=== PATIENT | female | born 1965 | race Caucasian/White ===

== ENCOUNTER 2025-01-15 13:06 | Inpatient (IN) | payer OTHER, SELFPAY ==
[2025-01-15] VITALS (10 sets, daily range): BP systolic 126–190; BP diastolic 72–136; BMI 20.1
--- NOTE | 2025-01-15 09:58 | ED.GENMED ---
History of Present Illness
General
Chief Complaint: Dizziness
Source: patient
Exam Limitations: none
Time Seen by Provider: 01/15/25 09:37
History of Present Illness
History of Present Illness:
59-year-old female started last week with evening with disequilibrium. At times spinning at times just balance off. Similar episode in 2021 when she had a pontine stroke. She had been on aspirin and clopidogrel. She currently only takes aspirin.
She admits that she is not totally faithful with this but has been faithful the last week. Also on losartan and hydrochlorothiazide. Again has historically not always been faithful with taking this but has been in the last week or so. Is
faithful with her statin. She also describes an episode of a possible ocular migraine last week. She states she has had that intermittently over the years. But none in a long time. Currently denies visual issues speech issues focal neurologic
symptoms or other complaints.
Past History
Past History
ED Past Medical History: CVA and HTN
ED Past Surgical History: None
Social History
Tobacco: Non-smoker
Alcohol: None
Personal:
Living: with family
Employment: Employed
Review of Systems
Review of Systems
All Other Systems: Not applicable
Respiratory: Reports no symptoms
Cardiac: Reports no symptoms
Phy Exam
Physical Exam
Physical Exam:
GENERAL: Alert and oriented in no apparent distress
EYE: Orbits normal.
NECK: Supple, no carotid bruit
ENT: Pharynx without erythema
CARDIAC: Regular rate and rhythm without any obvious murmurs.
LUNGS: Clear breath sounds,normal
ABDOMEN: Soft, without focal tenderness or distention
NEUROLOGICAL: Alert and oriented , speech normal. Eye confrontation normal. Extraocular muscles intact. Question a minuscule drift to the left arm but likely negative. Xbofoo-zh-[id number] normal. Lower extremity strength normal. Light touch intact.
SKIN: Warm and dry, no rash or lesion, no discoloration, skin intact.
MUSCULOSKELETAL: No edema,no deformity.Good color
PSYCH: Normal and appropriate interaction.
Course
Orders/Labs/Results
Orders:
Orders
01/15/25 09:15
Electrocardiogram (*1) Urgent
Reason for Study: Vertigo / Dizzy
EKG- Treatment ONCE
01/15/25 09:38
CT Head & Neck Angio W/wo IV Urgent
Comment:
Reason For Exam: Dizziness/hypertensive emergency
Cardiac Monitoring- Treatment ONCE
EKG- Treatment ONCE
IV Insert/Care/Rem.- Treatment PRN
Pulse Ox/cont/shift [RESP] Stat
Quantity: 1
01/15/25 09:56
Basic Metabolic Panel Urgent
Complete Blood Count/With Diff Urgent
01/15/25 10:00
NEUROLOGY CONSULT Urgent
Consulting Provider: Filomena Sandoval
Was physician already notified: Yes
Reason for consult: Disequilibrium/hypertension/history of CVA
01/15/25 12:00
MR Brain Without Contrast Routine
Comment:
Reason For Exam: vertigo
OK for patient to be off Cardiac Monitoring for MRI: No
Recent pill cam endoscopy?: No
01/15/25 12:39
Admit/Transfer Patient As Directed
Co-Sign Provider:
Level of Care: Inpatient admission
Assign to:: Telemetry
Physician / Group: munira
Diagnosis: TIA/CVA
Reason for Telemetry: CVA/TIA
Date to Stop Telemetry: 01/18/25
Time to Stop Telemetry: 11:00
Reason for Hospitalization: Transient episode of Dizziness presumed disequilibrium
HTN emergency
Expected length of stay greater than two midnights?: Yes
ELOS- Estimated Length of Stay in days: 3
I certify the patient meets the requirements for IP care: Yes
01/15/25 12:41
Code Status As Directed
Resuscitation Status: Full Code
01/15/25 13:05
diazePAM [Valium Injection] 2 mg IV ONCE PRN PRN
01/18/25 11:00
DC Protocol for Telemetry ONCE
Abnormal Lab Results
01/15/25
09:56
MPV 10.8 H fL
(7.4-10.4)
Glucose 109 H mg/dl
(70-99)
01/15/25 09:56
01/15/25 09:56
Vital Signs
Initial and Last Documented VS:
Initial Vital Signs
Temp Pulse Resp BP Pulse Ox
98.5 F 99 16 188/136 97
01/15/25 09:15 01/15/25 09:15 01/15/25 09:15 01/15/25 09:15 01/15/25 09:15
Last Documented Vital Signs
Temp Pulse Resp BP Pulse Ox
98.5 F 76 15 150/84 97
01/15/25 09:15 01/15/25 13:15 01/15/25 13:15 01/15/25 13:00 01/15/25 13:15
MDM/Problems Addressed
Differential Diagnosis Includes:
Patient describing disequilibrium with a history of pontine stroke and similar symptoms. Workup in progress. Diastolic blood pressure is improved some. Will observe closely. Neurology contacted. Clearly warrants admission.
*Radiology
Radiology exam reviewed: radiology read reviewed (No acute findings on CTA)
*Pulse Oximetry
SaO2: 97
Oxygen Mode of Delivery: Room air
Patient hypoxic: no
*EKG
Interpreted by ED Provider?: Yes
Interpretation: abnormal
Comparison EKG: changes noted
Heart Rate: 95
Rate: normal
Rhythm: sinus
[place]: normal axis
QRS Pattern: normal QRS
Ischemia: ST depression
*Critical Care Note
Total Time (30-74mins, 75-104mins- exclusive of procedures): Not Applicable
Data Reviewed
Review of Other/Old Records Reveals: Labs, Records, Radiology Studies and Testing
ED Attending Note
-
Portions of this chart may have been created with voice recognition software.� Occasional wrong word or��sound alike� substitutions may have occurred due to the inherent limitations of voice recognition software.
Discharge Plan
Departure
Patient Disposition: Admit
Date of Disposition: 01/15/25
Time of Disposition: 12:05
Presentation/result/management discussed w/ accepting MD/DO: Neurology
Discharge Problem:
Disequilibrium, Hypertensive emergency, hx of pontine cva
Interventions
Interventions:
*Risk Screen - Suicide Last Done: 01/15/25 09:11
*General Assessment Last Done: 01/15/25 10:28
*Neglect/Abuse Screening Last Done: 01/15/25 09:11
*ED COVID-19 Vaccine History Last Done: 01/15/25 10:24
*ED Influenza Vaccine History Last Done: 01/15/25 10:24
ED- Neurological Assessment Last Done: 01/15/25 11:20
ED Swallowing Screen Last Done: 01/15/25 10:03
[2025-01-15 10:22] LABS: Hematocrit 41.0 % (37.0-47.0); Hemoglobin 13.7 g/dL (12.0-16.0); Mean Corp Hgb Conc. 33.4 g/dL (33.0-37.0); Mean Corpuscular Volume 83.2 fL (81.0-99.0); Nucleated Red Blood Cells % 0 %; Platelet Count 241 10^3/uL (130-400); Red Cell Dist. Width 12.4 % (11.5-14.5)
[2025-01-15 10:25] LABS: Blood Urea Nitrogen 13 mg/dl (7-17); Calcium 9.7 mg/dl (8.4-10.2); Carbon Dioxide 28 mmol/L (22-30); Chloride 103 mmol/L (98-107); Glucose 109 mg/dl (70-99); Potassium 4.0 mmol/L (3.5-5.1); Sodium 137 mmol/L (135-145); eGFR > 60.00
--- NOTE | 2025-01-15 10:32 | CON.NEURO ---
Consultation
Order
Date of Consultation: 01/15/25
Requesting Provider: Markell Moise MD
Reason for Consult: Disequilibrium/hypertension/history of CVA
Neurology Consultation Note.
HPI: This is a 59-year-old woman who presented to [facility] on 01/15/2025 with dizziness.
The patient presents with a brief episode of room tilting that occurred last night, lasting one to two seconds, which reminded her of symptoms she experienced prior to her stroke in August 2021. During her previous stroke episode, she had a similar
tilting sensation while drying her hair, followed a few days later by balance issues, feeling like she was on a boat, difficulty walking, heavy legs, and weird sensations in her forearms. She was sent to the emergency room at that time and diagnosed
with a stroke. This morning, she experienced similar feelings but noted that her legs did not feel heavy yet, prompting her to seek medical attention to avoid taking any chances.
The patient reports having ocular migraines, with two episodes occurring last week, which was unusual for her. These episodes consisted of a blind spot in her vision followed by bright, wiggly lights lasting 15 minutes. She sometimes experiences
pressure in her head but denies strong headaches. She also reports intermittent tinnitus, particularly when stressed and when her blood pressure is elevated, describing it as a constant whooshing or ringing usually in her right ear.
The patient acknowledges inconsistent adherence to her blood pressure medication, stating she was good with taking it this week but not so much last week. She took her blood pressure medicine this morning and admits she does not take her medication
every day but is trying to be better about it.
Ms. Culp is currently under significant stress due to her boyfriend's serious illness.
ER VS: 188/136, 71, afebrile
EKG:NSR, QTcB Int : 449 ms
PDMP: none
Labs: Glucose�109, normal sodium, WBCs, creatinine
CT head wo contrast�unremarkable
PMH: Right pontine stroke (08/2021) HTN, DLP, migraine with aura
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
FH:- Mother: Parkinson's disease and dementia, at age 80; Father: Heart disease and lung cancer
All:NKDA
ROS: HEENT: Positive for tinnitus (whooshing or ringing in right ear, especially when stressed), positive for head pressure without strong headache.
Neurological: Positive for vibration sensation.
General: Well developed. In no acute distress.
Cardio: Regular rate and rhythm without murmur. Extremities are without cyanosis or edema.
Neuro:
Mental Status: Alert, oriented to person, place, and date. Normal attention and recall. Good fund of knowledge. Follows complex requests across the midline. Comprehension, naming, and repetition intact.
Cranial Nerves: Pupils are equally round and reactive to light. EOMs full. Visual horton full to confrontation. R>L visual fisure No ptosis. No nystagmus. V1-V3 intact to light touch and pinprick bilaterally, symmetric. Face symmetric.
Normal hearing AU. The palate elevated well. SCMs and traps 5/5. Tongue midline. No dysarthria.
Motor: Normal bulk and tone. No pronator or arm drift. Strength 5/5 throughout. No clonus.
Reflexes: 2+ throughout the upper extremities and knees. Plantar responses flexor bilaterally.
Sensory: Normal pinprick, vibration and JPS.
Coordination: No dysmetria or tremor.
Gait: deferred
Assessment and Plan:
I. Hypertensive emergency
II.Chronic R pontine infarct
III. Episodic migraine with aura.
-Continue Telemetry monitoring
-Cautious lowering of BP by approximately 15 % during the first 24 hours is SBP >220 mmHg or diastolic blood pressure >120 mmHg
-ASA 81 mg QD indefinitely
-Lipitor 40 mg QHS.
-Please check HbA1C, LDL.
-Brain MRI wo enedina
-PT.
-DVT prophylaxis.
I personally reviewed all radiology and labs along with past medical records pertinent to current medical problems. Total time spent in patient care is 55 minutes.
Thank you for allowing us to participate in the care of this patient. We will continue to follow. Please do not hesitate to contact us with any questions or concerns.
Subjective/Objective
Subjective Data
Date of Service: January 15, 2025
Objective Data
Vital Signs
Temp Pulse Resp BP Pulse Ox
36.9 C 75 16 168/112 97
01/15/25 09:15 01/15/25 10:00 01/15/25 10:00 01/15/25 10:00 01/15/25 10:00
Lab Results
01/15/25 09:56
01/15/25 09:56
Sodium 137 mmol/L (135-145) 01/15/25 09:56
Potassium 4.0 mmol/L (3.5-5.1) 01/15/25 09:56
BUN 13 mg/dl (7-17) 01/15/25 09:56
Glucose 109 mg/dl (70-99) H 01/15/25 09:56
Calcium 9.7 mg/dl (8.4-10.2) 01/15/25 09:56
Patient Allergies
No Known Allergies Allergy (Verified 01/31/22 11:42)
Medications
-
Home Medications
�Medication �Instructions �Recorded
losartan 50 mg tablet 100 mg PO DAILY Blood pressure 08/31/21
aspirin 81 mg chewable tablet 81 mg PO DAILY #30 tabs 09/02/21
rosuvastatin 20 mg tablet 20 mg PO DAILY #30 tabs 09/02/21
hydrochlorothiazide 25 mg tablet 25 mg PO DAILY 01/15/25
losartan 100 mg tablet 100 mg PO DAILY 01/15/25
Vital Signs and Labs
-
Vital Signs and Labs:
Vital Signs
Temp Pulse Resp BP Pulse Ox
36.9 C 75 16 168/112 97
01/15/25 09:15 01/15/25 10:00 01/15/25 10:00 01/15/25 10:00 01/15/25 10:00
Lab Results
01/15/25 09:56
01/15/25 09:56
Sodium 137 mmol/L (135-145) 01/15/25 09:56
Potassium 4.0 mmol/L (3.5-5.1) 01/15/25 09:56
BUN 13 mg/dl (7-17) 01/15/25 09:56
Glucose 109 mg/dl (70-99) H 01/15/25 09:56
Calcium 9.7 mg/dl (8.4-10.2) 01/15/25 09:56
Home Medications
-
Home Medications
losartan 50 mg tablet 100 mg PO DAILY Blood pressure 08/31/21
aspirin 81 mg chewable tablet 81 mg PO DAILY #30 tabs 09/02/21
rosuvastatin 20 mg tablet 20 mg PO DAILY #30 tabs 09/02/21
hydrochlorothiazide 25 mg tablet 25 mg PO DAILY 01/15/25
losartan 100 mg tablet 100 mg PO DAILY 01/15/25
--- NOTE | 2025-01-15 12:21 | HPS.HSE ---
Family Physician
-
Family Physician: Christopher Becker
Chief Complaint
-
dizziness
History of Present Illness
HPI
59F Non smoker , Right pontine stroke (08/2021) HTN, DLP, migraine with aura seen at ER:
- evaluation for dizziness .
- report transient episode of room tilting that occurred last night about one to two seconds
- symptoms she experienced prior to her stroke in August 2021.
- This morning, she experienced similar feelings but noted that her legs did not feel heavy yet
- hence come to ER for medical attention
- Inconsistent adherence to anti HTN meds
- took her blood pressure medicine this morning and admits she does not take her medication every day
ROS
- reports ocular migraines, with two episodes occurring last week, which was unusual for her.
- reports intermittent tinnitus, particularly when stressed and when her blood pressure is elevated
Medical History
Past Medical History
Past Medical History: Reports CVA (Right pontine stroke (08/2021)), HTN, Hypercholesterolemia and Other (migraine with aura)
Past Surgical History: Reports Other
Social History
Tobacco: Smoker
Alcohol: None
Family History
Family History: Not pertinent
Allergies / Home Medications
Allergies reflects when Allergies were last updated in [facility].
Home Medications with original date entered in [facility]
Allergy/Medication List:
Allergies
Allergy/AdvReac Type Severity Reaction Status Date / Time
No Known Allergies Allergy Verified 01/31/22 11:42
Home Medications
losartan 50 mg tablet 100 mg PO DAILY Blood pressure 08/31/21
aspirin 81 mg chewable tablet 81 mg PO DAILY #30 tabs 09/02/21
rosuvastatin 20 mg tablet 20 mg PO DAILY #30 tabs 09/02/21
hydrochlorothiazide 25 mg tablet 25 mg PO DAILY 01/15/25
losartan 100 mg tablet 100 mg PO DAILY 01/15/25
Review of Systems
-
Constitutional: Reports No Symptoms
EENT: Reports No Symptoms
Respiratory: Reports No Symptoms
Cardiac: Reports No Symptoms
Abdomen/GI: Reports No Symptoms
: Reports No Symptoms
Musculoskeletal: Reports No Symptoms
Skin: Reports No Symptoms
Endocrine: Reports No Symptoms
Hematologic/Lymphatic: Reports No Symptoms
Psych: Reports No Symptoms
Physical Exam
Vital Signs
Vital Signs
Temp Pulse Resp BP Pulse Ox
98.5 F 73 17 190/84 98
01/15/25 09:15 01/15/25 11:00 01/15/25 11:00 01/15/25 11:00 01/15/25 11:00
Physical Exam
General: Well Developed, Well Nourished and No Apparent Distress
HEENT: NormoCephalic, Moist mucous membranes and Atraumatic
Respiratory: Clear
Cardiac: S1/S2 and Regular Rhythm; No Murmur or Rub
GI: Soft, Non Tender, Non Distended and Normal Bowel Sounds; No Organomegaly
Rectal: Deferred by Provider
Musculoskeletal: No Clubbing, No Cyanosis and No Edema
Skin: No Rash
Neuro: Nonfocal/grossly intact
Psych: Calm
Laboratory Results
-
01/15/25 09:56
01/15/25 09:56
Data Reviewed
-
CT Scan: Report Reviewed by me
Medical Tests (Nuc Med, Echo, EKG etc): Report Reviewed by me
Lab Data: Labs Reviewed by me
Old Records: Reviewed
Impression/Plan
-
Vital Signs
Temp Pulse Resp BP Pulse Ox
98.5 F 73 17 190/84 98
01/15/25 09:15 01/15/25 11:00 01/15/25 11:00 01/15/25 11:00 01/15/25 11:00
01/15/25
09:56
MPV 10.8 H
Glucose [address] W/o Iv Contrast
- No acute intracranial abnormality noted.
- No significant interval change.
CT Head & Neck Angio W/wo IV
- No acute intracranial hemorrhage.
- Bilateral ICA calcified plaque formation with without hemodynamically significant stenosis; estimated luminal diameter reduction of 50% or less. No occlusion. No dissection.
- No [place] of [place] region aneurysm or stenosis.
- No cerebral artery significant plaque, stenosis, thrombus, or occlusion.
- Mild calcified plaque involving the right intradural vertebral artery without hemodynamically significant stenosis or occlusion. The cervical vertebral arteries are patent.
- Moderate emphysematous lung changes appear stable.
EKG
SINUS RHYTHM WITH PREMATURE SUPRAVENTRICULAR COMPLEXES
NONSPECIFIC ST ABNORMALITY
ABNORMAL ECG
WHEN COMPARED WITH ECG OF 31-Jan-2022 11:48,
PREMATURE SUPRAVENTRICULAR COMPLEXES ARE NOW PRESENT
Confirmed by CHRISTOPHER ISAAC MD ([id number]) on 01/15/2025 11:42:43 A
10/23/21 TTE
Normal left ventricular size, wall thickness and systolic function.
No regional wall motion abnormalities are seen.
Estimated ejection fraction is 55- 60%.
Normal diastolic function.
Normal right ventricular size and function.
Mild mitral regurgitation.
No prior study available for comparison.
Last hospitalist admission: 08/31/2021 - 09/02/2021
DC DXS: Acute CVA. Hypertensive urgency, Prediabetes
ASSESSMENT & PLAN
Transient episode of Dizziness presumed dysequilibrium
-NEG HCT and NEG H & N CTA for no acute process
- Associated Hypertensive emergency
- HX Chronic R pontine infarct
- HLD
- Baby ASA daily
- Brain MRI with [employer]
- will check HbA1C, LDL.
- Telemetry monitoring
- Appreciate Neuro consult
- PT
Hypertensive emergency
HX suggestive of intermittent adherence to BP meds
-Cautious lowering of BP by approximately 15 % during the first 24 hours
- IV Hydralazine PRN if SBP >220 mmHg or diastolic blood pressure >120 mmHg
DLP
-Lipitor 40 mg QHS.\\- f/u LDL
Episodic migraine with aura.
HX DUKES ( Lymphangioleiomyomatosis ) - f/u at [facility]
DVT Px: SCD
Full code
IP TLM
--- NOTE | 2025-01-15 13:15 | CM ---
Patient seen at bedside in ED. Patient states that she lives with her boyfriend in a 2 story home. Patient stated that she does not have any DME and that she sees JOEY Suazo not Dr Becker; but she was uncertain if they were in the same
group. Patient stated that she uses [facility] [place]. Patient stated that her plan is for discharge home with no needs. CM will continue to follow for discharge planning needs.
Plan; home with no needs; pending medical treatment plan
--- NOTE | 2025-01-15 13:48 | PTCARENOTE ---
RN in room to assist pt to the bathroom. Pt states that she has had indigestion that started when she received the contrast with the CT scan. Pt denies chest pain and SOB. VSS. Dr. Russ made aware. Protonix x 1 ordered. See MAR. Pt advised.
[2025-01-15] MEDS: PROTONIX 40 MG PO (13:51)
[2025-01-15] MEDS: TYLENOL 650 MG PO ×2 (15:55→20:33)
[2025-01-15] MEDS: LIPITOR 40 MG PO (17:11)
--- NOTE | 2025-01-15 18:12 | PTCARENOTE ---
pt new admission to the floor via stretcher. pt is AAO*3, Vss, room air. pt is a stroke r/o. stroke packet provided. pt NIH-0. pt c/o dizziness, denies any pain at this time. SCDs applied for DVT PPX. pt oriented to the room. call benson within the
reach.
[2025-01-16] VITALS (7 sets, daily range): BP systolic 123–173; BP diastolic 72–114; PULSE 60–94; BMI 20.2
[2025-01-16 06:22] LABS: ALT (SGPT) 26 U/L (0-35); AST (SGOT) 24 U/L (14-36); Albumin 4.1 g/dl (3.5-5.0); Alkaline Phosphatase 68 U/L (38-126); Blood Urea Nitrogen 19 mg/dl (7-17); Calcium 9.3 mg/dl (8.4-10.2); Carbon Dioxide 29 mmol/L (22-30); Chloride 104 mmol/L (98-107); Estimated Creatinine Clearance 70 ml/min; Glucose 98 mg/dl (70-99); HDL Cholesterol 48 mg/dl; LDL Cholesterol, Calculated 72 mg/dl; Potassium 4.1 mmol/L (3.5-5.1); Sodium 139 mmol/L (135-145); Total Protein 6.8 g/dl (6.3-8.2); Very Low Density Lipoprotein 12 mg/dl (0-30); eGFR > 60.00
[2025-01-16] MEDS: LOW STRENGTH ASPIRIN 81 MG PO (08:17)
[2025-01-16 08:19] LABS: Glycohemoglobin (HgbA1c) 5.9 % (4.0-5.6)
--- NOTE | 2025-01-16 08:59 | PTOTSP ---
Speech Pathology
Clinical Swallow Evaluation
59F with admission for CVA/TIA workup c/o dizziness p/w a functional oropaghrynegal swallow. No overt concerns for aspiration at this time. GEOGRAPHIC INFORMATION SYSTEMS ENGINEER service to follow up IF brain MRI comes back positive to perform cognitive communication evaluation and
r/o silent aspiration risk.
Recommend:
1. Regular Textures (IDDSI 7), thin liquids (IDDSI 0)
2. Meds as best tolerated
3. General Aspiration Precautions
4. GEOGRAPHIC INFORMATION SYSTEMS ENGINEER service to follow up IF brain MRI comes back positive to perform cognitive communication evaluation and r/o silent aspiration risk.
[2025-01-16] MEDS: FLUSH (NSS) 1 FLUSH IV (09:34)
[2025-01-16] MEDS: VALIUM INJECTION 2 MG IV (09:34)
--- NOTE | 2025-01-16 13:08 | W.PN.HOSP.TC ---
Today's Communication/Plan
-
dc
Assessment / Plan
Assessment / Plan
59yo F with PMHx of CVA, ocular migraine with aura, HTN, HLD came with acute onset of episodic vertigo. MRI showed no acute stroke, managed for possible TIA. CTA with less then 50% carotid stenosis b/l and no LVO, telemetry with PACs, no Afib,
previous Echo in 2021: Interatrial septum is intact with no evidence of shunting by color flow Doppler. As per discussion with Neurologist: can be d/c on ASA, statin indefinitely and Plavix for 21 days. Meclizine PRN. Adherence to BP meds
emphasized as patient arrived with HTN urgency
A/P:
#TIA
#Hx of CVA
ASA, Plavix, Statin as pr neuro consult
Meclizine for vertigo
CTA with ASCVD - already on ASA
#Essential HTN
cont home meds
#PReDM
low carb diet
DVt ppx SCDs
Full code
I have spent at least 38min reviewing chart, test results, communication with consultants and providing direct patient care
Anticipated Discharge: Today
Subjective/Interval History
-
Date of Service: January 16, 2025
Objective Data
-
Labs:
Laboratory Results
01/16/25
05:11
Sodium 139
Potassium 4.1
Chloride 104
Carbon Dioxide 29
BUN 19 H
Creatinine 0.8
Glucose 98
Calcium 9.3
Total Bilirubin 0.6
AST 24
ALT 26
Alkaline Phosphatase 68
Vital Signs:
Vital Signs
Temp Pulse Resp BP Pulse Ox
98 F 80 12 137/80 96
01/16/25 11:12 01/16/25 11:12 01/16/25 11:12 01/16/25 11:12 01/16/25 11:12
I&O
01/15/25 01/16/25 01/17/25
06:59 06:59 06:59
Intake Total 0 0
Balance 0 0
Review of Systems
-
History Source: Patient
All other systems: Reviewed and negative
Physical Exam
-
General: No Apparent Distress
HEENT: Normocephalic
Neuro: Awake, Alert, Oriented, AO x 3 and No Motor Deficits
Psych: Calm
--- NOTE | 2025-01-16 13:12 | W.DCSUMMARY ---
Discharge Summary
Discharge Data
Date of Admission: 01/15/25
Date of Discharge: 01/16/25
-
Pending Results: No
Hospital Course
59yo F with PMHx of CVA, ocular migraine with aura, HTN, HLD came with acute onset of episodic vertigo. MRI showed no acute stroke, managed for possible TIA. CTA with less then 50% carotid stenosis b/l and no LVO, telemetry with PACs, no Afib,
previous Echo in 2021: Interatrial septum is intact with no evidence of shunting by color flow Doppler. As per discussion with Neurologist: can be d/c on ASA, statin indefinetely and Plavix for 21 days. Meclizine PRN. Adherence to BP meds
emphasized as patient arrived with HTN urgency
I have spent at least 38min reviewing chart, test results, communication with consultants and providing direct patient care
Patient was managed for:
#TIA
#Hx of CVA
#Essential HTN
#PReDM
Discharge Plan
-
Patient Disposition: Home (Routine Discharge)
Discharge Diagnosis/Procedures: vertigo
Diet: Regular
Referrals:
Christophre Becker MD [Family Provider, [facility]]
Prescriptions:
New
meclizine 25 mg tablet
25 mg PO Q8HPRN PRN (Reason: dizziness) Qty: 30 0RF
atorvastatin 40 mg Tablet
40 mg PO QPM Qty: 30 0RF
clopidogrel [Plavix] 75 mg tablet
75 mg PO DAILY Qty: 21 0RF
Continued
losartan 50 MG tablet
100 mg PO DAILY
aspirin 81 MG tablet,chewable
81 mg PO DAILY Qty: 30 0RF
hydrochlorothiazide 25 mg Tablet
25 mg PO DAILY
Discontinued
rosuvastatin 20 MG tablet
20 mg PO DAILY Qty: 30 0RF
Discharge Orders:
Discharge Patient (As Directed); Ordered 01/16/25
Ordered By: David Edwards
Discharge Date and Time
Print Language: LIBERIAN
--- NOTE | 2025-01-16 13:55 | CM ---
Patient has been medically cleared for discharge to home with script for outpatient PT. Attending notified to supply script to patient. Patient arranged for transport home.
[2025-01-16] MEDS: FLUZONE (6 mos+) 2025-2026 FORMULA 0.5 ML IM (15:01)
== END 2025-01-16 16:07 | disposition home or self-care (01) | DRG 69 ==
LOC: 4 EAST ACU 13:06
PROVIDERS: ADMITTING PHYSICIAN Internal Medicine; ATTENDING PHYSICIAN Internal Medicine; CONSULT PHYSICIAN Psychiatry & Neurology Neurology; EMERGENCY PHYSICIAN Emergency Medicine; FAMILY PHYSICIAN Family Medicine
PROC: 3E02340 Introduction of Influenza Vaccine into Muscle, Percutaneous Approach (ICD-10-PCS; 2025-01-16)
DX: G45.9 Transient cerebral ischemic attack, unspecified (principal); I16.1 Hypertensive emergency; H81.10 Benign paroxysmal vertigo, unspecified ear; Z86.73 Personal history of transient ischemic attack (TIA), and cerebral infarction without residual deficits; F17.200 Nicotine dependence, unspecified, uncomplicated; I10 Essential (primary) hypertension; Z79.82 Long term (current) use of aspirin; G43.109 Migraine with aura, not intractable, without status migrainosus; Z23 Encounter for immunization
CPT/HCPCS: 70496; 70498; 70551; 80048; 80053; 80061; 83036; 84443; 85025; 90656; 92610; 93005; 94760; 97162; 97166; 99285; G0008; Q9967